=== PATIENT | male | born 1995 | race Two or more races ===

== ENCOUNTER 2019-02-09 04:10 | Emergency (ER) | payer BC, OTHER ==
[~2019-02-09] VITALS: Ht 180.3 cm; Wt 106.8 kg
[2019-02-09] MEDS ORDERED: ACETAMINOPHEN 500 MG TABLET PO ONE (05:00)
[2019-02-09] MEDS ORDERED: IBUPROFEN 400 MG TABLET PO ONE (05:00)
[2019-02-09] MEDS ORDERED: PERTUSS(ACELL),DIPH,TET VAC/PF 0.5 ML VIAL IM ONE (05:45)
[2019-02-09 06:20] VITALS: BP 126/69
== END 2019-02-09 06:42 | disposition home or self-care (01) ==
LOC: EMS 04:10
DX: S83.92XA Sprain of unspecified site of left knee, initial encounter (principal); Y08.89XA Assault by other specified means, initial encounter; Y93.89 Activity, other specified; Y92.89 Other specified places as the place of occurrence of the external cause; Y99.8 Other external cause status
CPT/HCPCS: 29505; 90471; 90715